=== PATIENT | male | born 1985 | race Caucasian/White ===

== ENCOUNTER 2017-01-07 20:27 | Emergency (ER) | payer OTHER ==
[~2017-01-07] VITALS: Ht 180.3 cm; Wt 95.5 kg
[2017-01-07] MEDS ORDERED: KETOROLAC 60 MG/2 ML VIAL (J1885) IM ONE (21:30)
[2017-01-07] MEDS ORDERED: DERMABOND TOPICAL SKIN ADHESIVE TOP ONE (21:30)
[2017-01-07 21:57] VITALS: BP 139/83
== END 2017-01-07 21:59 | disposition home or self-care (01) ==
LOC: M ED 20:27
DX: S61.211A Laceration without foreign body of left index finger without damage to nail, initial encounter (principal); W26.0XXA Contact with knife, initial encounter; Y92.099 Unspecified place in other non-institutional residence as the place of occurrence of the external cause; Y93.89 Activity, other specified; Y99.9 Unspecified external cause status
CPT/HCPCS: 12001; 96372; 99282; J1885